=== PATIENT | female | born 1955 | race Caucasian/White ===

== ENCOUNTER 2017-06-11 15:17 | Inpatient (IN) ==
[2017-06-11] MEDS ORDERED: SODIUM CHLORIDE 0.9% 1,000 ML IV STA ×2 (20:31→22:26)
[2017-06-11] MEDS ORDERED: ONDANSETRON 4 MG/2 ML VIAL IV STA (20:31)
[2017-06-11] MEDS ORDERED: methylPREDNISolone SOD SUC 125 MG/2 ML VIAL IV STA (20:32)
[2017-06-11] MEDS ORDERED: diphenhydrAMINE 50 MG/1 ML VIAL IV STA (20:32)
[2017-06-11] MEDS ORDERED: diphenhydrAMINE 50 MG/1 ML VIAL ONE (20:39)
[2017-06-11] MEDS ORDERED: methylPREDNISolone SOD SUC 125 MG/2 ML VIAL ONE (20:39)
[2017-06-11] MEDS ORDERED: ONDANSETRON 4 MG/2 ML VIAL ONE (20:39)
[2017-06-11 21:10] LABS: Basophils # 0.1 10*3/uL (0.0-0.2); Basophils % 0.5 % (0.0-0.8); Eosinophils # 0.1 10*3/uL (0.0-0.87); Eosinophils % 0.2 % (0.00-10.9); Hematocrit 40.3 VOL% (35.7-47.0); Hemoglobin 14.5 GM/DL (12.0-16.0); Immature Granulocytes % 6.1 %; Immature Granulocytes Absolute 1.62 #; Lymphocytes % 3.9 % (21.3-54.2); Mean Corpuscular Hemoglobin 30 PG (27-34); Mean Corpuscular Volume 82.1 FL (87-102); Mean Platelet Volume 10.2 FL (9.6-12.0); Monocytes # 0.7 10*3/uL (0.11-0.8); Monocytes % 2.6 % (1.7-12.7); Neutrophils # 22.9 10*3/uL (1.4-7.4); Neutrophils % 86.7 % (38.7-73.9); Platelet Count 222 T/CUMM (130-400); Red Blood Count 4.91 MC/CUMM (3.8-5.5); Red Cell Distribution Width 14.6 % (9.3-17.3); White Blood Count 26.4 T/CUMM (4-12)
[2017-06-11 21:40] LABS: Band Neutrophils 1 % (0-10); Lymphocytes 3 % (20-55); Segmented Neutrophils 94 % (50-85); Total Cells Counted 100
[2017-06-11 21:41] LABS: Platelet Estimate Normal; Poikilocytosis Slight; Tear Drop Cells Few
[2017-06-11 21:52] LABS: Albumin 2.7 G/DL (3.4-5.0); Calcium 7.9 MG/DL (8.5-10.1); Osmolality,Calculated 309.5 MOS/KG (273-304); Potassium 3.4 MMOL/L (3.5-5.1); Total Protein 7.2 G/DL (6.4-8.3)
[2017-06-11] MEDS ORDERED: VANCOMYCIN INJ 1,000 MG in SODIUM CHLORIDE 0.9% 250 ML IV STA (22:30)
[2017-06-11] MEDS ORDERED: CEFEPIME 2,000 MG in SODIUM CHLORIDE 0.9% 100 ML IV STA (22:30)
[2017-06-11] MEDS ORDERED: VANCOMYCIN 1,000 MG VIAL ONE (22:38)
[2017-06-12 01:08] LABS: Apearance,Urine CLEAR (Clear); Bacteria,Urine Many /HPF (Few); Bilirubin,Urine Negative (Negative); Blood, Urine Moderate mg/dL (Negative); Glucose,Urine (UA) Negative (Negative); Ketones,Urine Negative (Negative); Nitrite,Urine Negative (Negative); Protein,Urine Negative; RBC,Urine 2 /HPF (0-4); Squamous Epithelial Cell,Urine Occasional /HPF (0-10); Urine Color Yellow (Yellow); Urine Specific Gravity 1.004 (1.001-1.035); Urine Urobilinogen < 2.0 EU/DL (0.2-1.0)
[2017-06-12] MEDS ORDERED: ONDANSETRON 4 MG/2 ML VIAL IV PRN (03:04)
[2017-06-12] MEDS ORDERED: MORPHINE 2 MG/1 ML SYRINGE IV PRN (03:04)
[2017-06-12] MEDS ORDERED: THIAMINE INJ 100 MG, FOLIC ACID INJ 1 MG, MULTIVITAMIN INJ 10 ML in DEXTROSE 5% NACL 0.... IV ONE (03:30)
[2017-06-12] MEDS: FLUCONAZOLE INJ 100 MG in IV BAG 1 EACH IV SCH (03:57)
[2017-06-12] MEDS: cefTRIAXone 1,000 MG in SYRINGE 1 EACH IV SCH (03:58)
[2017-06-12] MEDS: ENOXAPARIN 30 MG/0.3 ML SYRINGE SUBCUT SCH (08:44)
[2017-06-12] MEDS: PANTOPRAZOLE 40 MG VIAL IV SCH (08:45)
[2017-06-12] MEDS ORDERED: HYDROCORTISONE 1% CREAM 28 GM TUBE TOP PRN (15:19)
[2017-06-12 16:13] LABS: Calcium 7.2 MG/DL (8.5-10.1); Osmolality,Calculated 328.8 MOS/KG (273-304); Potassium 4.1 MMOL/L (3.5-5.1)
[2017-06-12 16:16] LABS: Hepatitis A Ab IgM Quant 0.03 Index; Hepatitis A Ab IgM Result Negative (Negative); Hepatitis B Core IgM Quant 0.12 Index; Hepatitis B Core IgM Result Negative (Negative); Hepatitis B Surface Ag Quant < 0.10 Index; Hepatitis B Surface Ag Result Negative (Negative); Hepatitis C Virus Ab Quant 0.13 Index; Hepatitis C Virus Ab Result Negative (Negative)
[2017-06-12] MEDS: SODIUM CHLORIDE 23.4% CONC INJ 38.5 MEQ, SODIUM BICARB INJ 100 MEQ in STERILE WATER INJ... IV SCH (17:20)
[2017-06-13] MEDS: SODIUM CHLORIDE 23.4% CONC INJ 38.5 MEQ, SODIUM BICARB INJ 100 MEQ in STERILE WATER INJ... IV SCH ×3 (01:15→21:56)
[2017-06-13] MEDS: cefTRIAXone 1,000 MG in SYRINGE 1 EACH IV SCH (04:55)
[2017-06-13] MEDS: FLUCONAZOLE INJ 100 MG in IV BAG 1 EACH IV SCH (05:43)
[2017-06-13 07:22] LABS: Calcium 7.1 MG/DL (8.5-10.1); Osmolality,Calculated 329.4 MOS/KG (273-304)
[2017-06-13 07:26] LABS: Albumin 2.2 G/DL (3.4-5.0); Bilirubin,Direct 0.98 MG/DL (0.0-0.20); Bilirubin,Indirect 0.9 MG/DL (0.0-1.0); Bilirubin,Total 1.9 MG/DL (0.2-1.0)
[2017-06-13] MEDS: ENOXAPARIN 30 MG/0.3 ML SYRINGE SUBCUT SCH (09:01)
[2017-06-13] MEDS: PANTOPRAZOLE 40 MG VIAL IV SCH (09:02)
[2017-06-13] MEDS ORDERED: hydrOXYzine HCL 25 MG TABLET PO PRN (13:23)
[2017-06-13] MEDS ORDERED: PIPERACILLIN/TAZOBACTAM 3,375 MG in SODIUM CHLORIDE 0.9% 100 ML IV SCH (15:00)
[2017-06-13] MEDS ORDERED: POTASSIUM CHLORIDE 20 MEQ TABLET PO ONE (15:58)
[2017-06-13] MEDS ORDERED: predniSONE 10 MG TABLET PO SCH (16:00)
[2017-06-13] MEDS: FENOFIBRATE 145 MG TABLET PO SCH (17:13)
[2017-06-13] MEDS: amLODIPine 5 MG TABLET PO SCH (17:14)
[2017-06-13] MEDS: predniSONE 20 MG TABLET PO SCH (17:14)
[2017-06-13] MEDS: LEVOFLOXACIN INJ 250 MG in PREMIX 1 EACH IV SCH (17:14)
[2017-06-13] MEDS ORDERED: OMEGA 3 ACID ETHYL ESTERS 1 GM CAPSULE PO SCH (21:00)
[2017-06-13] MEDS: ZALEPLON 5 MG CAPSULE PO PRN (23:39)
[2017-06-14] MEDS: FLUCONAZOLE INJ 100 MG in IV BAG 1 EACH IV SCH (05:18)
[2017-06-14] MEDS: SODIUM CHLORIDE 23.4% CONC INJ 38.5 MEQ, SODIUM BICARB INJ 100 MEQ in STERILE WATER INJ... IV SCH ×2 (07:22→15:15)
[2017-06-14 07:32] LABS: Basophils % 0.2 % (0.0-0.8); Hematocrit 31.4 VOL% (35.7-47.0); Immature Granulocytes % 2.2 %; Immature Granulocytes Absolute 0.23 #; Lymphocytes # 0.5 10*3/uL (1.4-4.0); Lymphocytes % 4.7 % (21.3-54.2); Mean Corpuscular HGB Conc 35.4 GM/DL (32-36); Mean Corpuscular Hemoglobin 29 PG (27-34); Mean Corpuscular Volume 82.6 FL (87-102); Mean Platelet Volume 10.5 FL (9.6-12.0); Monocytes # 0.2 10*3/uL (0.11-0.8); Monocytes % 1.7 % (1.7-12.7); Neutrophils # 9.7 10*3/uL (1.4-7.4); Neutrophils % 91.2 % (38.7-73.9); Platelet Count 233 T/CUMM (130-400); Red Cell Distribution Width 14.4 % (9.3-17.3)
[2017-06-14 07:43] LABS: Hemoglobin 11.1 GM/DL (12.0-16.0); White Blood Count 10.6 T/CUMM (4-12)
[2017-06-14 07:58] LABS: Albumin 2.2 G/DL (3.4-5.0); Bilirubin,Direct 0.92 MG/DL (0.0-0.20); Bilirubin,Indirect 0.9 MG/DL (0.0-1.0); Bilirubin,Total 1.8 MG/DL (0.2-1.0); Total Protein 5.6 G/DL (6.4-8.3)
[2017-06-14 08:02] LABS: Band Neutrophils 2 % (0-10); Hypochromasia 1+; Lymphocytes 1 % (20-55); Platelet Estimate Adequate; Polychromasia Slight; Segmented Neutrophils 92 % (50-85); Total Cells Counted 100
[2017-06-14 08:12] LABS: Albumin 2.2 G/DL (3.4-5.0); Bilirubin,Total 1.8 MG/DL (0.2-1.0); Osmolality,Calculated 317.5 MOS/KG (273-304); Potassium 3.4 MMOL/L (3.5-5.1); Total Protein 5.6 G/DL (6.4-8.3)
[2017-06-14 08:14] LABS: Risk Ratio 10.5; VLDL CHOLESTEROL 42.2 MG/DL
[2017-06-14] MEDS: predniSONE 20 MG TABLET PO SCH (09:09)
[2017-06-14] MEDS: FENOFIBRATE 145 MG TABLET PO SCH (09:09)
[2017-06-14] MEDS: amLODIPine 5 MG TABLET PO SCH (09:10)
[2017-06-14] MEDS: ENOXAPARIN 30 MG/0.3 ML SYRINGE SUBCUT SCH (09:10)
[2017-06-14] MEDS: PANTOPRAZOLE 40 MG VIAL IV SCH (09:10)
[2017-06-14] MEDS: methylPREDNISolone SOD SUC 40 MG/1 ML VIAL IV SCH ×2 (13:57→18:12)
[2017-06-15] MEDS: methylPREDNISolone SOD SUC 40 MG/1 ML VIAL IV SCH ×4 (00:17→18:43)
[2017-06-15] MEDS: SODIUM CHLORIDE 23.4% CONC INJ 38.5 MEQ, SODIUM BICARB INJ 100 MEQ in STERILE WATER INJ... IV SCH ×3 (00:19→21:14)
[2017-06-15] MEDS: FLUCONAZOLE INJ 100 MG in IV BAG 1 EACH IV SCH (04:57)
[2017-06-15 06:44] LABS: Basophils % 0.1 % (0.0-0.8); Hemoglobin 10.9 GM/DL (12.0-16.0); Immature Granulocytes % 1.2 %; Immature Granulocytes Absolute 0.15 #; Mean Corpuscular HGB Conc 35.2 GM/DL (32-36); Mean Corpuscular Hemoglobin 29 PG (27-34); Mean Corpuscular Volume 83.6 FL (87-102); Monocytes # 0.7 10*3/uL (0.11-0.8); Monocytes % 6.1 % (1.7-12.7); Neutrophils # 10.4 10*3/uL (1.4-7.4); Neutrophils % 84.6 % (38.7-73.9); Platelet Count 250 T/CUMM (130-400); Red Blood Count 3.71 MC/CUMM (3.8-5.5); White Blood Count 12.2 T/CUMM (4-12)
[2017-06-15 07:15] LABS: Calcium 7.1 MG/DL (8.5-10.1); Osmolality,Calculated 310.1 MOS/KG (273-304); Potassium 3.2 MMOL/L (3.5-5.1)
[2017-06-15 07:17] LABS: Albumin 2.3 G/DL (3.4-5.0); Bilirubin,Total 1.5 MG/DL (0.2-1.0); Calcium 7.1 MG/DL (8.5-10.1); Magnesium 1.9 MG/DL (1.8-2.4); Osmolality,Calculated 309.1 MOS/KG (273-304); Phosphorous 5.9 MG/DL (2.5-4.9); Potassium 3.2 MMOL/L (3.5-5.1); Total Protein 5.7 G/DL (6.4-8.3)
[2017-06-15 07:19] LABS: Albumin 2.3 G/DL (3.4-5.0); Bilirubin,Direct 0.77 MG/DL (0.0-0.20); Bilirubin,Indirect 0.8 MG/DL (0.0-1.0); Bilirubin,Total 1.6 MG/DL (0.2-1.0); Total Protein 5.8 G/DL (6.4-8.3)
[2017-06-15] MEDS: PANTOPRAZOLE 40 MG VIAL IV SCH (09:26)
[2017-06-15] MEDS: FENOFIBRATE 145 MG TABLET PO SCH (09:27)
[2017-06-15] MEDS: amLODIPine 5 MG TABLET PO SCH ×2 (09:27→21:14)
[2017-06-15] MEDS: ENOXAPARIN 30 MG/0.3 ML SYRINGE SUBCUT SCH (09:42)
[2017-06-15] MEDS ORDERED: POTASSIUM CHLORIDE 20 MEQ TABLET PO ONE (14:27)
[2017-06-15 14:58] LABS: Free T4 (Free Thyroxine) 0.99 NG/DL (0.76-1.46); Thyroid Stimulating Hormone 1.94 uIU/ml (0.358-3.74)
[2017-06-15] MEDS: LEVOFLOXACIN INJ 250 MG in PREMIX 1 EACH IV SCH (15:32)
[2017-06-15] MEDS: ceFAZolin 500 MG in SYRINGE 1 EACH IV SCH (18:44)
[2017-06-15] MEDS: ZALEPLON 5 MG CAPSULE PO PRN (21:17)
[2017-06-16] MEDS: methylPREDNISolone SOD SUC 40 MG/1 ML VIAL IV SCH ×3 (02:19→12:15)
[2017-06-16] MEDS: SODIUM CHLORIDE 23.4% CONC INJ 38.5 MEQ, SODIUM BICARB INJ 100 MEQ in STERILE WATER INJ... IV SCH ×2 (02:19→06:30)
[2017-06-16 04:37] LABS: Basophils % 0.1 % (0.0-0.8); Hematocrit 30.9 VOL% (35.7-47.0); Hemoglobin 10.7 GM/DL (12.0-16.0); Immature Granulocytes % 0.8 %; Immature Granulocytes Absolute 0.09 #; Lymphocytes # 0.8 10*3/uL (1.4-4.0); Lymphocytes % 7.5 % (21.3-54.2); Mean Corpuscular HGB Conc 34.6 GM/DL (32-36); Mean Corpuscular Hemoglobin 30 PG (27-34); Mean Corpuscular Volume 86.3 FL (87-102); Mean Platelet Volume 10.3 FL (9.6-12.0); Monocytes # 0.7 10*3/uL (0.11-0.8); Monocytes % 6.5 % (1.7-12.7); Neutrophils # 9.3 10*3/uL (1.4-7.4); Neutrophils % 85.1 % (38.7-73.9); Platelet Count 243 T/CUMM (130-400); Red Blood Count 3.58 MC/CUMM (3.8-5.5); Red Cell Distribution Width 13.8 % (9.3-17.3); White Blood Count 10.9 T/CUMM (4-12)
[2017-06-16 05:25] LABS: Albumin 2.4 G/DL (3.4-5.0); Bilirubin,Total 1.6 MG/DL (0.2-1.0); Calcium 6.8 MG/DL (8.5-10.1); Magnesium 1.7 MG/DL (1.8-2.4); Osmolality,Calculated 299.7 MOS/KG (273-304); Phosphorous 4.5 MG/DL (2.5-4.9); Potassium 3.4 MMOL/L (3.5-5.1); Total Protein 5.7 G/DL (6.4-8.3)
[2017-06-16] MEDS: ceFAZolin 500 MG in SYRINGE 1 EACH IV SCH ×2 (06:34→12:02)
[2017-06-16] MEDS ORDERED: MAGNESIUM SULF RIDER 2 GM in PREMIX 1 EACH IV PRN (07:05)
[2017-06-16] MEDS ORDERED: MAGNESIUM SULF RIDER 4 GM in PREMIX 1 EACH IV PRN (07:05)
[2017-06-16] MEDS ORDERED: POTASSIUM CHLORIDE RIDER 10 MEQ in PREMIX 1 EACH IV PRN (07:05)
[2017-06-16] MEDS ORDERED: SODIUM CHLORIDE 0.45% 1,000 ML IV SCH (09:30)
[2017-06-16] MEDS: ENOXAPARIN 30 MG/0.3 ML SYRINGE SUBCUT SCH (10:19)
[2017-06-16] MEDS: PANTOPRAZOLE 40 MG VIAL IV SCH (10:29)
[2017-06-16] MEDS: FENOFIBRATE 145 MG TABLET PO SCH (10:36)
[2017-06-16] MEDS: amLODIPine 5 MG TABLET PO SCH (10:36)
[2017-06-16] MEDS ORDERED: POTASSIUM CHLORIDE 20 MEQ TABLET PO ONE (10:55)
[2017-06-16 13:29] VITALS: BP 147/76
== END 2017-06-16 15:30 | disposition home or self-care (01) | DRG 871 ==
LOC: N.ED 15:17 → N.EDINP 06-12 00:56 → N.5E 06-12 02:38
PROVIDERS: ADMIT Internal Medicine; ATTEND Internal Medicine